=== PATIENT | male | born 1975 | race Caucasian/White ===

== ENCOUNTER 2024-04-19 08:41 | Outpatient (REF) | payer BC, SELFPAY ==
[2024-04-19 09:38] LABS: MANUAL DIFF FLAG NO
[2024-04-19 10:00] LABS: Basophils Percent Auto 0.6 % (0-2); Eosinophils Absolute Auto 0.1 X10*3/uL (0.0-0.4); Eosinophils Percent Auto 1.7 % (0-4); Hematocrit 43.6 % (42.0-52.0); Hemoglobin 14.4 g/dl (14.0-18.0); Imm Gran Abs Auto 0.02 X10*3/uL (0.00-0.03); Imm Gran Pct Auto 0.3 % (0.0-0.4); Lymphocytes Absolute Auto 1.9 X10*3/uL (1.2-4.9); Lymphocytes Percent Auto 26.3 % (20-40); Mean Corpuscular Hemoglobin 28.3 pg (27.0-33.0); Mean Corpuscular Volume 85.7 fL (80.0-98.0); Mean Platelet Volume 9.9 fL (9.4-12.4); Monocytes Absolute Auto 0.6 X10*3/uL (0.1-1.2); Monocytes Percent Auto 7.9 % (2-11); Neutrophils Absolute Auto 4.5 x10*3/uL (2.0-8.3); Neutrophils Percent Auto 63.2 % (45-73); Platelet Count 223 X10*3/uL (160-400); Red Blood Count 5.09 X10*6/uL (4.60-5.80); Red Cell Distribution Width 13.3 % (11.0-16.0); White Blood Count 7.1 X10*3/uL (4.8-10.8)
[2024-04-19 10:32] LABS: Alanine Aminotransferase 26 U/L (0-40); Albumin Level 4.4 g/dL (3.5-5.0); Alkaline Phosphatase 53 U/L (39-117); Anion Gap 12 (12-20); Aspartate Amino Transferase 22 U/L (5-37); Blood Urea Nitrogen 14 mg/dL (9-16); Calcium 8.8 mg/dL (8.4-10.2); Carbon Dioxide 27 mmol/L (22-29); Chloride 106 mmol/L (96-108); Estimated Glomerular Filt Rate > 60; Glucose Random 93 mg/dL (60-115); Potassium 4.6 mmol/L (3.3-5.1); Sodium 140 mmol/L (135-145); Total Protein 7.6 g/dL (6.5-8.0)
== END 2024-04-19 08:42 | disposition home or self-care (01) ==
LOC: HO.LAB 08:41
PROVIDERS: PCP Internal Medicine; Visit Provider Nurse Practitioner
DX: Z01.818 Encounter for other preprocedural examination (principal); K58.9 Irritable bowel syndrome, unspecified
CPT/HCPCS: 36415; 80053; 85025

== ENCOUNTER 2024-04-19 08:41 | Outpatient (AMB) | payer BC, SELFPAY ==
--- NOTE | 2024-04-19 08:42 | MHC.OFFVIS ---
Vital Signs 04/19/24 08:47 Height 5 ft 10 in Weight 194 lb 7.163 oz BMI 27.9 BP 118/72 Blood Pressure Location Lt brachial Position Sitting Pulse 62 Pulse Source Pulse Oximeter Pulse Oximetry (%) 100 Oxygen Delivery Method Room Air Intake Visit Reasons: Colonoscopy Screening Intake Note: Casey presents in office today for a scheduled colo scrn. CC; Pt reports that this is a recall colo only. Pt denies any sx or significant concerns at this time. Choir Member Required: No Allergies No Known Allergies Allergy (Verified 04/19/24 08:46) HPI HPI Colonoscopy Screening: Details: 48-year-old male here for preprocedural meeting to discuss a screening colonoscopy. He is referred by [facility] nor the [facility]. P.m. X Asthma Carpal tunnel syndrome * SURGICAL HISTORY Bilateral CTR Colonoscopy/EGD 2013 * ALLERGIES: NKDA * [employer] LABS: none in our system TODAY'S VISIT This is his second colonoscopy, he had an EGD/colon in the remote past for stomach problems. He has always had strong periumbilical abd pain, at times this is relieved with BM, sometimes not. It is relieved with Pepto Bismol or ibuprofen. These are not r/t anything he eats. Not r/t exercise. Trial bentyl. His asthma is well controlled and he denies any cardiac problems. No ID problems He is relatively naive to anesthesia and sedation but has had no problems with past scopes and CTR. There is no FHX of CRC Or polyps. [facility] Surgical History (Updated 04/19/24 @ 08:45 by MICHELLE Don) Hx of endoscopy (~2013) H/O colonoscopy (~2013) Family History (Updated 04/15/24 @ 15:17 by MICHELLE Douglas) Father COPD (chronic obstructive pulmonary disease) Cirrhosis of liver Social History (Updated 04/19/24 @ 08:46 by MICHELLE Don) Alcohol intake: current Comment: 2-3 / week. Typically socially. Patient Tobacco Use Status: Never used Tobacco Use of substances other than those prescribed or required for medical reasons: No Review of Systems Const Denies fatigue, Denies fever(s), Denies night sweats, Denies poor appetite and Denies weight loss ENT Reports Normal hearing present, Denies dental pain, Denies dysphagia, Denies hearing loss, Denies mouth pain, Denies odynophagia, Denies throat swelling, Denies tongue swelling and Reports other (Dentition adequate) Card Reports no additional complaints Resp Reports no additional complaints GI Details: Denies abdominal pain, Denies melena, Denies bloating, Denies hematochezia, Denies constipation, Reports GI cramping, Denies dysphagia, Denies excessive flatus, Denies early satiety, Denies heartburn, Denies diarrhea, Denies nausea, Denies odynophagia, Denies vomiting and Denies hematemesis Skin/Breast Denies pruritus, Denies lesions, Denies rash and Denies jaundice Neuro Reports Normal hearing present and Denies Abnormal speech present Endo Denies fatigue Aller/Immun Denies throat swelling and Denies tongue swelling Physical Exam Vital Signs: Last Vital Signs Pulse 62 04/19/24 08:47 BP 118/72 04/19/24 08:47 Pulse Ox 100 04/19/24 08:47 Oxygen Delivery Method Room Air 04/19/24 08:47 BMI result Body Mass Index 27.9 Const General: cooperative, no acute distress, well developed and well groomed Nutritional Appearance: well nourished and overweight Orientation/consciousness: oriented to person, oriented to place and oriented to time Limitations: No language barrier HEENT Head: Yes normocephalic and Yes atraumatic Eyes General: appearance normal, both eyes and all related structures Pupils: Equal, round and reactive pupils present Neck Neck: Yes normal visual inspection and Yes no lymphadenopathy Thyroid: Thyroid normal Resp Effort & Inspection: normal respiratory effort and able to speak in complete sentences Auscultation: clear to auscultation bilaterally Cardio Rate: regular rate Rhythm: regular rhythm Heart sounds: Normal, physiologic split S2 sound present Peripheral pulses: radial pulses present and posterior tibial pulses present GI Inspection: No distended and No Abdominal panniculus present Palpation (GI): Soft to palpation, nontender, no guarding, not rigid and No hepatosplenomegaly present Percussion: Yes normal to percussion Auscultation: normal bowel sounds Rectal Exam - Male: Yes deferred Skin General skin exam: no rashes or lesions noted, turgor normal, skin not dry, no jaundice, No spider nevi and no striae Rashes: no rashes Nails: normal Neuro General: oriented to person, oriented to place and oriented to time Cranial nerves: Yes Equal, round and reactive pupils present and Yes Normal hearing present Speech: No Abnormal speech present Extrem General: Yes normal to inspection, No clubbing, No cyanosis and No edema Psych Appearance: grossly normal and well kempt Mental Status: mental status grossly normal Speech and movement: Normal speech and movement present Affect: normal affect Attitude: cooperative Thought process: Normal thought process present and not confabulating Thought content: Normal thought content present Insight: Fair insight present (Psych) Judgement: Fair judgement present (Psych) Assessment & Plan Assessment & Plan (1) Pre-op examination: Code(s): Z01.818 - Encounter for other preprocedural examination Category: Medical (2) IBS (irritable bowel syndrome): Code(s): K58.9 - Irritable bowel syndrome without diarrhea Category: Medical Plan This is his second colonoscopy, he had an EGD/colon in the remote past for stomach problems. He has always had strong periumbilical abd pain, at times this is relieved with BM, sometimes not. It is relieved with Pepto Bismol or ibuprofen. These are not r/t anything he eats. Not r/t exercise. Trial bentyl. His asthma is well controlled and he denies any cardiac problems. No ID problems He is relatively naive to anesthesia and sedation but has had no problems with past scopes and CTR. There is no FHX of CRC Or polyps. Orders: Orders Colonoscopy - GI Use Only 04/19/24 Z01.818 - Encounter for other preprocedural examination, K58.9 - Irritable bowel syndrome without diarrhea Comprehensive Met. Panel 04/19/24 Z01.818 - Encounter for other preprocedural examination, K58.9 - Irritable bowel syndrome without diarrhea Complete Blood Count Auto Diff 04/19/24 Z01.818 - Encounter for other preprocedural examination, K58.9 - Irritable bowel syndrome without diarrhea Medications: New peg 3350-electrolytes 236-22.74-6.74 -5.86 gram (Golytely) until fecal effluent is clear; do not exceed a total volume of 2,000 mL 240 mL PO Q10M 4,000 mL 0RF 1 day Z12.11 - Encounter for screening for malignant neoplasm of colon bisacodyl (Dulcolax (bisacodyl)) 10 mg (2 x 5 mg) PO BEDTIME 4 tabs 0RF 2 days dicyclomine 20 mg PO .prn 90 tabs 1RF 30 days Coding Level of Care Code New Pt Level 3 (37516) Diagnoses Pre-op examination Z01.818 IBS (irritable bowel syndrome) K58.9
[2024-04-19 08:47] VITALS: BP 118/72; PULSE 62; O2SAT 100; BMI 27.9
== END 2024-04-19 09:18 | disposition home or self-care (01) ==
PROVIDERS: PCP Internal Medicine; Visit Provider Nurse Practitioner
DX: Z01.818 Encounter for other preprocedural examination (principal); Z12.11 Encounter for screening for malignant neoplasm of colon; K58.9 Irritable bowel syndrome, unspecified
CPT/HCPCS: S0285

== ENCOUNTER 2024-10-18 09:39 | Day surgery (SDC) | payer BC, SELFPAY ==
[2024-10-15 12:47] VITALS: BMI 27.9
--- NOTE | 2024-10-17 10:26 | HO.ANESPROP2 ---
HPI - Anesthesia Eval Consult details Narrative: 48yo M for Colonoscopy [facility] Active Problems Active Problems: All Active Problems IBS (irritable bowel syndrome) (Acute) Pre-op examination (Acute) Carpal tunnel syndrome (Acute) Asthma (Acute) Past Medical History Medical History (Updated 10/15/24 @ 12:49 by Hortensia Armando, RN) Asthma IBS (irritable bowel syndrome) Family History Family History (Updated 04/15/24 @ 15:17 by MICHELLE Douglas) Father COPD (chronic obstructive pulmonary disease) Cirrhosis of liver Surgical History Surgical History (Updated 10/15/24 @ 12:49 by Hortensia Armando, RN) History of carpal tunnel release of both wrists Hx of endoscopy (~2013) H/O colonoscopy (~2013) Social History Social History (Updated 04/19/24 @ 08:46 by MICHELLE Don) Alcohol intake: current Comment: 2-3 / week. Typically socially. Patient Tobacco Use Status: Never used Tobacco Meds Allergies Allergy/AdvReac Type Severity Reaction Status Date / Time No Known Allergies Allergy Verified 04/19/24 08:46 Exam Height,Weight and Vital Signs: Height 5 ft 10 in Weight 88.195 kg Assessment and Plan Assessment Anesthesia Assessment: Chart Reviewed
[2024-10-18 10:48] VITALS: BMI 28.1
[2024-10-18 10:53] VITALS: BP 129/75; PULSE 58; RESP 15; TEMP 36.3; O2SAT 99
[2024-10-18] MEDS: Lactated Ringers 1,000 ML 100 ML IVCONT (11:01)
--- NOTE | 2024-10-18 11:11 | P.CONAN_ITS ---
[facility] Active Problems Active Problems: All Active Problems IBS (irritable bowel syndrome) (Acute) Pre-op examination (Acute) Carpal tunnel syndrome (Acute) Asthma (Acute) Past Medical History Medical History Asthma IBS (irritable bowel syndrome) Functional capacity: independent ambulation Family History Family History Father COPD (chronic obstructive pulmonary disease) Cirrhosis of liver Family history of problems with anesthesia: No Surgical History Surgical History History of carpal tunnel release of both wrists Hx of endoscopy (~2013) H/O colonoscopy (~2013) History of Problems with Anesthesia: No Social History Social History (Updated 04/19/24 @ 08:46 by Pancho Spicer [facility]) Alcohol intake: current Comment: 2-3 / week. Typically socially. Patient Tobacco Use Status: Never used Tobacco Use of substances other than those prescribed or required for medical reasons: No Are you DNR?: No Advance Directives: No Advance Directives Information Provided: Yes Travel History History of recent travel: No Meds Allergies Allergy/AdvReac Type Severity Reaction Status Date / Time No Known Allergies Allergy Verified 10/18/24 10:43 Active Medications: Current Medications Albuterol Sulfate (Albuterol Sulfate (0.083%) 2.5 Mg/3 Ml Vial.Neb) 2.5 mg INHALE ONCE PRN PRN Reason: Shortness of Breath/Wheezing Lactated Ringer's (Lr) 1,000 mls @ 100 mls/hr IVCONT .Q10H [facility] Last Admin: 10/18/24 11:01 Dose: 100 mls/hr Home Medications ?Medication ?Instructions ?Recorded ?Confirmed ?Last Taken ?Type No Known Home Meds 10/18/24 10/18/24 Unknown History Exam Height,Weight and Vital Signs: Height 5 ft 10 in Weight 88.904 kg Last Vital Signs Temp 97.4 F 10/18/24 10:53 Pulse 58 10/18/24 10:53 Resp 15 10/18/24 10:53 BP 129/75 10/18/24 10:53 Pulse Ox 99 10/18/24 10:53 O2 Del Method Room Air 10/18/24 10:53 Airway Mallampati Class: II TM Dist: >3cm Neck ROM: Full Heart: RRR Lungs: CTA Assessment and Plan Assessment Anesthesia Assessment: Anesthesia Plan Discussed and Chart Reviewed Final Anesthetic Review Family History of Problems with Anesthesia: No History of Problems with Anesthesia: No NPO: Yes ASA Class: II Final Preanesthetic Review: Meds/Allgs Chart Reviewed, Consent Obtained/Reviewed and Anes Risks/Benef Reviewed Patient Risk: Low Procedure Risk: Low Anesthetic Plan Anesthetic Plan: MAC: Disposition: Standard PACU
--- NOTE | 2024-10-18 11:49 | MHC.SHP ---
Pre-Procedural Eval Section A - 24 Hr Update-Section A only Date of Service: 10/18/24 The patient is an INPATIENT: No The patient has been examined within 24 hours of the surgical procedure. The History & Physical has been completed within 30 days and I have reviewed it.: No Section B - Complete if H&P > 30 days Chief Complaint: Colon cancer screening Relevant Family History (Specify if Yes): No Relevant Social History: None Present Medications: see Short Stay Collaborative assessment Medical History: Significant History (IBS) History of Previous Operations: Relevant previous surgery/procedure and date(s) (Hx of endoscopy (~2013) H/O colonoscopy (~2013)) Allergies: Allergies Allergy/AdvReac Type Severity Reaction Status Date / Time No Known Allergies Allergy Verified 10/18/24 10:43 Review of Systems Sugical H&P ROS: Negative: Constitution, Cardiovascular, Respiratory and Gastrointestinal Exam Surgical H&P Exam: Normal: Heart, Normal: Lungs, Normal: Extremities and Normal: Abdomen Plan Diagnosis/Plan: Unchanged I have reviewed the history and physical and performed a pertinent physical examination on my patient. No changes have occurred unless specified. Time Spent With Patient Time: Total time managing care of this patient today ____ minutes.
--- NOTE | 2024-10-18 13:13 | P.OPN-COLO_ITS ---
Colonoscopy Operative Note Operative Note Date of Service: 10/18/24 Narrative: COLONOSCOPY TILL CECUM WITH BIOPSIES AND SNARE POLYPECTOMY Pre-op diagnosis: Colon cancer screening (2nd colon). Post-op diagnosis:? Colon polyps, Diverticulosis, hemorrhoids Endoscopist:? Nida Farias MD Anesthesia:?MAC Consent: Indications for the procedure and potential complications of bleeding, perforation, reaction to medications and missed diagnosis were discussed with the patient and informed consent was obtained. Instrument: Olympus CF H 190 L variable stiffness adult colonoscope Monitoring: Vital signs and clinical assessment, intermittent blood pressure monitoring, continuous EKG monitoring, Pulse oximetry and Carbon Dioxide monitoring were done throughout the procedure. Please see anesthesia flowsheet. Colon withdrawl time was 17 minutes. Procedure: The patient was placed in the left lateral decubitis position and pre-procedure medications were administered. After a digital rectal examination of the ano-rectum, the video colonoscope was inserted into the rectum and advanced through the colon to the cecum. The colonoscope was slowly withdrawn in a retrograde panoramic fashion and the colon mucosa was carefully examined including a retroflexed view of the rectum. Findings and interventions are described below. Procedure Difficulty: without difficulty Findings: Terminal Ileum: Not evaluated Cecum: Normal Ascending Colon: Normal Transverse Colon: A 2-3 mm diminutive appearing polyp - removed with a cold biopsy Descending Colon: Moderate diverticulosis Sigmoid Colon: A few 5-8 mm diminutive appearing polyps - 1 removed with a cold snare. Moderate diverticulosis Rectum: Normal Ano-rectum: Normal Colon preparation: Good after some irrigation. [place] Bowel Preparation Scale Right colon; 2 Transverse colon: 2 Left colon; 2 (0 = Unprepared colon segment with mucosa not seen due to solid stool that cannot be cleared. 1 = Portion of mucosa of the colon segment seen, but other areas of the colon segment not well seen due to staining, residual stool and/or opaque liquid. 2 = Minor amount of residual staining, small fragments of stool and/or opaque liquid, but mucosa of colon segment seen well. 3 = Entire mucosa of colon segment seen well with no residual staining, small fragments of stool or opaque liquid) Impression and Post Procedure Diagnosis: Colonoscopy Findings: Two small polyps were removed Moderate diverticulosis seen in the left colon Plan: Pt has a FU appointment on 11/01/24 with Padmini Araya NP. Repeat Colonoscopy in 5 years if polyps are adenomatous and 10 year if polyps are hyperplastic. Above findings were reviewed with the patient and relevant handouts were given and the discharge area.
[2024-10-18 13:16] VITALS: BP 112/55; PULSE 62; RESP 18; TEMP 36.1; O2SAT 97
[2024-10-18 13:30] VITALS: BP 107/59; PULSE 53; RESP 16; TEMP 36.3; O2SAT 97
--- NOTE | 2024-10-18 14:43 | HO.POSTANES ---
Post Anesthesia Evaluation Post Anesthesia Evaluation Date of Service: 10/18/24 Vital Signs: Vital Signs Temp Pulse Resp BP Pulse Ox O2 Del Method 10/18/24 13:30 97.4 F 53 16 107/59 L 97 Room Air 10/18/24 13:16 97 F 62 18 112/55 L 97 Room Air 10/18/24 10:53 97.4 F 58 15 129/75 99 Room Air Anesthesia: Monitored Mental Status: Awake Pain Control: Satisfactory Nausea/Vomiting: None Hydration: Adequate Anesthesia-Related Issues: No Anes. Related Issues
== END 2024-10-18 13:53 | disposition home or self-care (01) ==
PROVIDERS: Visit Provider Internal Medicine Gastroenterology
PROC: 0DJD8ZZ Inspection of Lower Intestinal Tract, Via Natural or Artificial Opening Endoscopic (ICD-10-PCS; CPT 45378; principal; 2024-10-18 12:00)
DX: Z12.11 Encounter for screening for malignant neoplasm of colon (principal); K63.5 Polyp of colon; K57.30 Diverticulosis of large intestine without perforation or abscess without bleeding; K64.8 Other hemorrhoids; K58.9 Irritable bowel syndrome, unspecified; J45.909 Unspecified asthma, uncomplicated
CPT/HCPCS: 45385; 45380; 88305; J2003; J2704

== ENCOUNTER → 2024-10-18 09:39 | Outpatient (BNV) | payer BC, SELFPAY | PROVIDERS: Visit Provider Internal Medicine Gastroenterology | DX: Z12.11 Encounter for screening for malignant neoplasm of colon (principal); K63.5 Polyp of colon; K57.90 Diverticulosis of intestine, part unspecified, without perforation or abscess without bleeding | CPT/HCPCS: 45380; 45385 ==